=== PATIENT | female | born 1985 | race Caucasian/White ===

== ENCOUNTER 2017-06-09 06:26 | Inpatient (IN) ==
[2017-06-09] MEDS ORDERED: ALBUTEROL/IPRATROPIUM 2.5mg-0.5mg/3ml NEB IH ONE (06:35)
[2017-06-09] MEDS ORDERED: METHYLPREDNISOLONE SOD SUCC 125mg/2ml INJECTION IM ONE (06:35)
--- OUTSIDE RECORDS SUMMARY | 2017-06-09 06:41 | External Medical Summary ---
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 08247-073 650 MG Orally August 23, 1 tablet as 0-08 every 6 hrs 2014 needed for headache Ventolin HFA [facility] 73484-099 108 (90 Base) July 28, 1 to 2 puffs 2-20 MCG/ACT 2014 as needed Inhalation every for 6 hrs cough/wheezi ng/shortness of breath Pristiq [facility] 65007-216 50 MG Orally 1 tablet 1-01 Once a day Ativan [facility] 19194-703 0.5 MG Orally 1 tablet as 7-60 Once a day needed Results No Known Results Summary Purpose eClinicalWorks Submission
--- OUTSIDE RECORDS SUMMARY | 2017-06-09 06:41 | External Medical Summary ---
:1985 Author Organization [employer] Care Team Providers Name Role Phone Tim Wren Provider Role Unavailable Allergies, Adverse Reactions, Alerts Substance Reaction Event Type Sulfa rash Drug Allergy Ketorolac Tromethamine muscle spasm at injection site Drug Allergy Problems Problem Type Condition Code Onset Dates Condition Status Assessment Acute bronchitis 466.0 Active Assessment Tear of medial cartilage or meniscus 836.0 Active of knee, current Assessment Asthma 493.90 Active Assessment Migraine headaches 346.90 Active Problem Generalized osteoarthrosis, 715.09 Active involving multiple sites Problem Asthma 493.90 Active Problem Migraine headaches 346.90 Active Assessment Knee pain 719.46 Active Assessment Sprain and strain of cruciate 844.2 Active ligament of knee Problem Knee pain 719.46 Active Problem Unspecified anemia 285.9 Active Medications Medication Code System Code Instructions Start End Date Status Dosage Date Ativan [facility] 40245-29 0.5 MG Orally 1 tablet as 37-60 [place] [address]-71 650 MG Orally August 23, 1 tablet as 00-08 every 6 hrs 2014 needed for headache Ventolin HFA [facility] 13505-86 108 (90 Base) July 28, 1 to 2 puffs 82-20 MCG/ACT 2015 as needed Inhalation every for 6 hrs cough/wheezi ng/shortness of breath Pristiq [facility] 80208-85 50 MG Orally 1 tablet - Once a day Flovent HFA [facility] 04825-49 44 MCG/ACT August 23September 22, 1 puff 18-20 Inhalation Twice 2014 2014 a day Procedures Procedure Coding System Code Date OFFICE VISIT, EST-MOD. COMPLEXITY (25 MIN) CPT-4 51663 September 06, 2014 Vital Signs Date/Time: September 06, 2014 Height 59.5 in Weight 219.12 lbs Temperature 98.4 F Blood Pressure Diastolic 78 mm Hg Blood Pressure Systolic 122 mm Hg Cardiac Monitoring Heart Rate 86 /min BMI 43.51 Index Respiratory Rate 28 /min Results No Known Results Summary Purpose eClinicalWorks Submission
[2017-06-09] MEDS ORDERED: OXYMETAZOLINE 0.05% NASAL SPRAY 15ml EA NOSTRIL ONE (06:42)
[2017-06-09] MEDS ORDERED: DiphenhydrAMINE 50 MG/ML INJECTION IVP ONE (06:42)
[2017-06-09] MEDS ORDERED: GUAIFENESIN 400MG TABLET PO ONE (06:42)
--- NOTE | 2017-06-09 06:46 | Emergency Department Report ---
Asthma HPI - General Stated Complaint: difficulty breathing Time Seen by Provider: 06/09/17 06:35 Source: patient, RN notes reviewed, old records reviewed Mode of arrival: ambulatory Limitations: no limitations - History of Present Illness HPI Narrative: 31yo woman presents to the ER for evaluation of difficulty breathing. Pt has had continuous dyspnea for the last week. She has seen her PCM and is now on combivent, q6h nebs, and x2 atbx (doxy and levaquin). Pt has not received much relief and sx come back quickly after the atbx. Pt has URI sx, and coughs frequently. Pt has severe sinus pain, hilario with coughing. MD complaint: "asthma attack", shortness of breath Onset (ago): week(s) (4+) Severity: severe Context: recent URI Associated symptoms: productive cough Asthma History: childhood onset Treatments Prior to Arrival: inhaled bronchodilator, inhaled steroid, IV steroid , other (nebs) - Related Data Home Medications Medication Instructions Recorded Confirmed Pristiq (desvenlafaxine succinate 100 mg PO Q24H 03/29/17 06/09/17 ER) 100 mg tablet,extended release 24 hr Topamax (topiramate) 25 mg tablet 25 mg PO BID tab 03/29/17 06/09/17 Albuterol/Ipratropium [Duoneb] 1 vial INH Q6H PRN 06/09/17 06/09/17 Allergies Allergy/AdvReac Type Severity Reaction Status Date / Time Sulfa (Sulfonamide Allergy Intermediate RASH Verified 06/09/17 06:52 Antibiotics) ketorolac [From Toradol] Allergy Unknown Verified 06/09/17 06:53 hydrocodone [From Lortab] AdvReac Verified 06/09/17 06:52 Review of Systems All systems: reviewed and negative except as stated Constitutional: Reports: as per HPI, weakness. Denies: fever, chills, weight change, night sweats ENT: Reports: as per HPI, throat pain, congestion. Denies: ear pain, dental pain, hearing loss, epistaxis, dysphagia Respiratory: Reports: as per HPI, cough, dyspnea, wheezes. Denies: hemoptysis, stridor PFSH Patient Stated Medical History Migraine Yes Asthma Yes Bronchitis Yes Pneumonia Yes: 2015 Hx Kidney Stones Yes Osteoarthritis Yes Other Musculoskeletal Yes: RIGHT KNEE PROBLEM Anesthesia Reactions Yes: THROAT SPASMED WITH TUBE REMOVAL Depression Yes Abnormal Pap Yes Post Menopausal No Now No Clinic Medical History (Last Updated 03/29/17 @ 13:55 by Jethro Vidal MA) Depression (Acute Medical) Headache (Acute Medical) Surgical History: c- section x2. lithotripsy. uterine ablation. partial hysterectomy. tonsillectomy Family History: Family History (Last Updated 03/29/17 @ 13:58 by Jethro Vidal MA) Mother History of colon polyps Father Diabetes 1.5, managed as type 2 Diabetes 1.5, managed as type 1 HTN (hypertension) - Social History Smoking status: Former smoker Physical Exam - Limitations Limitations: no limitations - General General appearance: alert, in no apparent distress, obese - Normal Exams: Head:: Normocephalic without trauma Eyes:: Pupils are PERRLA w/ EOMI, No scleral icterus, irritation, or foreign bodies noted Lymphatic:: No lymphadenopathy Musculoskeletal:: No tenderness, or deformity noted, good range of motion Integumentary:: No rashes, hives, or bruising noted, hair and nails Neurological:: Patient is alert, and oriented, cranial nerves, motor/sensory/ cerebellar, exams w/o gross deficits Psychiatric:: Patient exhibits, appropriate attention - ENT ENT exam: Present: normal exam, mucous membranes moist, normal external ear exam. Absent: normal oropharynx (Erythema with PND) - Neck Neck exam: Present: normal inspection, full ROM, trachea midline. Absent: tenderness - Chest Chest inspection: Present: normal inspection, symmetric chest wall rise. Absent : tenderness, rash - Respiratory Respiratory exam: Present: wheezes (Throughout). Absent: normal lung sounds bilaterally, respiratory distress, prolonged expiratory phase - Cardiovascular Cardiovascular exam: Present: regular rate, normal rhythm, normal heart sounds, +S1, +S2. Absent: systolic murmur, diastolic murmur, +S3, +S4 Course - Consultations Consultation #1: Hospitalist: Will admit for further eval/treatment. Time: 09:40 Vital Signs Temperature 98.1 F 06/09/17 06:33 Pulse Rate 110 H 06/09/17 06:33 Respiratory Rate 24 06/09/17 06:33 Blood Pressure 193/86 H 06/09/17 06:33 Pulse Oximetry 95 06/09/17 06:33 Temperature 98.1 F 06/09/17 06:33 Pulse Rate 110 H 06/09/17 06:33 Respiratory Rate 16 06/09/17 09:16 Blood Pressure 193/86 H 06/09/17 06:33 Pulse Oximetry 94 06/09/17 09:16 Dyspnea - MDM Narrative Medical decision making narrative: Pt is still hypoxic (86-96% on RA; sitting at 93% at baseline), tachycardic, and tachypneic following solu-medrol, duo-neb x3, and IV mag. Flu A/B neg; has h /o asthma. Will contact hospitalist for discussion of admission. - Differential Diagnosis Differential diagnosis: Likely: Acute exacerbation, Status asthmaticus, Acute asthmatic bronchitis, Pneumonia (Sinusitis), COPD exacerbation, Pneumothorax - Medical Records Attestation: I reviewed the patient's medical records. - Lab Data Attestation: I reviewed the patient's lab results. Result diagrams: 06/09/17 07:47 06/09/17 07:47 Lab Results 06/09/17 06/09/17 06/09/17 Range/Units 07:11 07:47 07:47 WBC 8.1 (4.5-11.0) T/MM3 RBC 4.80 (4.00-5.20) M/MM3 Hgb 13.5 (12-16) GM/DL Hct 41.6 (36-46) % MCV 86.7 (80-100) UM3 MCH 28.1 (26-34) UUG MCHC 32.5 (31-37) GM/DL RDW Std Deviation 45.4 (36.9-50.2) FL Plt Count 184 (130-400) T/MM3 MPV 11.6 (9.4-12.4) UM3 Immature Gran % (Auto) 0.7 H (0.0-0.5) % Neut % (Auto) 62.3 (33-66) % Lymph % (Auto) 24.8 (23-45) % [place] % (Auto) 4.1 (0-9.0) % Eos % (Auto) 7.9 H (0-4) % Baso % (Auto) 0.2 (0-2) % Neut # (Auto) 5.0 (1.8-7.7) T/MM3 Lymph # (Auto) 2.0 (1-4.8) T/MM3 [place] # (Auto) 0.3 (0-0.8) T/MM3 Eos # (Auto) 0.6 H (0-0.5) T/MM3 Baso # (Auto) 0.0 (0-0.2) T/MM3 Abs Immat Gran (auto) 0.06 H (0.00-0.03) T/MM3 D-Dimer (0-230) NG/ML ABG pH (7.350-7.450) ABG pCO2 (34-45) MMHG ABG pO2 (80-100) MMHG ABG HCO3 (22-26) MEQ/L ABG Total CO2 (23-27) MEQ/L ABG O2 Saturation (95.0-98.0) % ABG Base Excess (-2.0-2.0) MMOL/L O2 Delivery Method Turbidity < 20 (0-20) Sodium 144 (134-144) MEQ/L Potassium 3.8 (3.6-5) MEQ/L Chloride 106 (98-107) MEQ/L Carbon Dioxide 24 (22-30) MEQ/L Anion Gap 14 (5-15) MEQ/L BUN 16.0 (7-17) MG/DL Creatinine 0.7 (0.7-1.2) MG/DL GFR Calculation 98 BUN/Creatinine Ratio 23 (6-26) RATIO Glucose 150 H (65-110) MG/DL Calculated Osmolality 281 H (261-280) MOSM/KG Calcium 9.4 (8.4-10.2) MG/DL Icterus Index < 2 (0-7) Specimen Hemolysis 31 H (0-25) Adenovirus (PCR) Negative (Negative) B.parapertussis DNA PCR Negative (Negative) C. pneumoniae DNA (PCR) Negative (Negative) Coronavirus OC43 (PCR) Negative (Negative) Coronavirus HKU1 (PCR) Negative (Negative) Coronavirus 229E (PCR) Negative (Negative) Coronavirus NL63 (PCR) Negative (Negative) Human Metapneumovir PCR Negative (Negative) Influenza Type A (PCR) Negative (Negative) Influenza Type B (PCR) Negative (Negative) M. pneumoniae (PCR) Negative (Negative) Parainfluenza 1 (PCR) Negative (Negative) Parainfluenza 2 (PCR) Negative (Negative) Parainfluenza 3 (PCR) Negative (Negative) Parainfluenza 4 (PCR) Negative (Negative) RSV (PCR) Negative (Negative) Entero/Rhino (PCR) Negative (Negative) 06/09/17 06/09/17 Range/Units 07:47 09:05 WBC (4.5-11.0) T/MM3 RBC (4.00-5.20) M/MM3 Hgb (12-16) GM/DL Hct (36-46) % MCV (80-100) UM3 MCH (26-34) UUG MCHC (31-37) GM/DL RDW Std Deviation (36.9-50.2) FL Plt Count (130-400) T/MM3 MPV (9.4-12.4) UM3 Immature Gran % (Auto) (0.0-0.5) % Neut % (Auto) (33-66) % Lymph % (Auto) (23-45) % [place] % (Auto) (0-9.0) % Eos % (Auto) (0-4) % Baso % (Auto) (0-2) % Neut # (Auto) (1.8-7.7) T/MM3 Lymph # (Auto) (1-4.8) T/MM3 [place] # (Auto) (0-0.8) T/MM3 Eos # (Auto) (0-0.5) T/MM3 Baso # (Auto) (0-0.2) T/MM3 Abs Immat Gran (auto) (0.00-0.03) T/MM3 D-Dimer < 150 (0-230) NG/ML ABG pH 7.390 (7.350-7.450) ABG pCO2 37 (34-45) MMHG ABG pO2 84 (80-100) MMHG ABG HCO3 22 (22-26) MEQ/L ABG Total CO2 23.5 (23-27) MEQ/L ABG O2 Saturation 96.0 (95.0-98.0) % ABG Base Excess -2.2 L (-2.0-2.0) MMOL/L O2 Delivery Method Room air Turbidity (0-20) Sodium (134-144) MEQ/L Potassium (3.6-5) MEQ/L Chloride (98-107) MEQ/L Carbon Dioxide (22-30) MEQ/L Anion Gap (5-15) MEQ/L BUN (7-17) MG/DL Creatinine (0.7-1.2) MG/DL GFR Calculation BUN/Creatinine Ratio (6-26) RATIO Glucose (65-110) MG/DL Calculated Osmolality (261-280) MOSM/KG Calcium (8.4-10.2) MG/DL Icterus Index (0-7) Specimen Hemolysis (0-25) Adenovirus (PCR) (Negative) B.parapertussis DNA PCR (Negative) C. pneumoniae DNA (PCR) (Negative) Coronavirus OC43 (PCR) (Negative) Coronavirus HKU1 (PCR) (Negative) Coronavirus 229E (PCR) (Negative) Coronavirus NL63 (PCR) (Negative) Human Metapneumovir PCR (Negative) Influenza Type A (PCR) (Negative) Influenza Type B (PCR) (Negative) M. pneumoniae (PCR) (Negative) Parainfluenza 1 (PCR) (Negative) Parainfluenza 2 (PCR) (Negative) Parainfluenza 3 (PCR) (Negative) Parainfluenza 4 (PCR) (Negative) RSV (PCR) (Negative) Entero/Rhino (PCR) (Negative) - Radiology Data Attestation: I reviewed the patient's radiology results. CXR: Stable chest. Image inverted. No acute CT pathology. Disposition Clinical Impression: Hypoxia Asthma exacerbation Qualifiers: Asthma severity: unspecified severity Asthma persistence: unspecified Qualified Code(s): J45.901 - Unspecified asthma with (acute) exacerbation Disposition: 02 To [facility] Condition: Improved Time of Disposition: 09:44 - Seen By: physician
[2017-06-09] MEDS ORDERED: DiphenhydrAMINE 50 MG/ML INJECTION IM ONE (06:55)
[2017-06-09] MEDS ORDERED: SALINE FLUSH 10ml SYRINGE IVF PRN (07:32)
[2017-06-09] MEDS ORDERED: ALBUTEROL/IPRATROPIUM 2.5mg-0.5mg/3ml NEB AEROSOL ONE ×2 (08:04→08:51)
[2017-06-09] MEDS: MAGNESIUM SULFATE 1gm PREMIX 1 GM/100 ML BAG IV SCH ×2 (08:22→08:35)
--- NOTE | 2017-06-09 08:41 | XRay Report ---
INDICATION: Dyspnea PROCEDURE: CHEST 2-VIEWS UPRIGHT (PA & LAT) Encounter: Initial COMPARISON: May 28, 2017 FINDINGS: The lungs are clear without evidence of focal abnormal airspace opacity. There is no pleural effusion or pneumothorax. The heart size, mediastinal contours and pulmonary vascularity are within normal limits. There is no significant skeletal abnormality. IMPRESSION: No acute cardiopulmonary disease. .
[2017-06-09 11:13] VITALS: BMI 48.0
[2017-06-09] MEDS ORDERED: SENNA + DOCUSATE TABLET PO PRN (11:47)
[2017-06-09] MEDS ORDERED: ACETAMINOPHEN 325 MG TABLET PO PRN (11:47)
[2017-06-09] MEDS ORDERED: ONDANSETRON 4 MG/2 ML INJECTION IVP PRN (11:47)
[2017-06-09] MEDS ORDERED: ALBUTEROL/IPRATROPIUM 2.5mg-0.5mg/3ml NEB AEROSOL PRN (12:04)
[2017-06-09] MEDS ORDERED: BENZONATATE 100 MG CAPSULE PO PRN (12:06)
[2017-06-09] MEDS ORDERED: MENTHOL COUGH DROPS (RICOLA) MM PRN (12:06)
[2017-06-09] MEDS ORDERED: HYDROCODONE/CHLORPHENIRAMINE ER ORAL LIQ 5ml PO PRN (12:07)
--- NOTE | 2017-06-09 12:19 | History & Physical Report ---
History of Present Illness Date: 06/09/17 Chief complaint: asthma exacerbation, dyspnea HPI: Hayley Ordaz is a 31-year-old patient of Dr. Reyes Feldman who presented to [facility] today, 06/09/17, for evaluation of worsening dyspnea. She reports a history of asthma and states that beginning in April 2017 she started to have increased cough, occasionally productive, sinus tenderness and progressive dyspnea. She was seen by her PCP and treated for "walking pneumonia" with Levaquin and doxycycline which she states she completed more than a week ago. She reports that she initially felt better following the antibiotic treatment until yesterday, 06/08/17, when she started to have increased cough with increased difficulty breathing. She denies any known fevers throughout her illness. No chest pain, abdominal pain, nausea, vomiting or dysuria. She reports that her children were previously sick with respiratory symptoms but have since resolved. She admits to using home DuoNeb treatments as well as Combivent and pro-air albuterol inhaler as needed. Throughout the night, she progressively became more short of breath, eventually seeking evaluation in the ED this morning. Upon arrival to the ED, she was found to be tachypneic and tachycardic. She was given 3 DuoNeb treatments, Solu-Medrol 125mg IV, mucinex x 1 dose and Benadryl 50mg IV without improvement. She was then given Magnesium sulfate 3g IV with some improvement. CXR revealed no acute cardiopulmonary abnormalities. Labs were unremarkable including d-dimer which was <150. Despite treatments, she remained tachycardic with tachypnea. Dr. Arguello was consulted and she was admitted into observation status for further evaluation, close respiratory monitoring and symptomatic treatment. Her length of stay is not expected to exceed more than 2 over nights. MD: Ms. Ordaz was interviewed by me. Currently she is breathing normally without labored breathing. She is on room air. She denies any chest pain or palpitations. She does tell me that she did have fevers when this all started in April but has not run any sense. She is starting to cough up thick brown sputum chunks. She denies nausea, vomiting, diarrhea or constipation. She denies any abdominal pain. She denies any lower extremity edema. Review of Systems All systems PM: 10-point ROS was reviewed, no additional remarkable complaints except Review of systems: 12 point review of systems negative except as noted in the HPI - Constitutional Constitutional: Present: headache(s) (sinus pressure). Absent: chills, fatigue , fever(s), lethargy, night sweats, weakness - EENMT Eyes: Absent: diplopia, loss of vision, photophobia Ears: Absent: ear pain Balance: Absent: falling to one side Nose: Present: allergies. Absent: nosebleeds Mouth/Throat: Present: dry mouth. Absent: sore throat, sores, ulcers, changes in swallowing, painful swallowing - Cardiovascular Cardiovascular: Present: dyspnea on exertion. Absent: chest pain, palpitations , syncope, orthopnea, edema Vascular: Absent: pallor of an extermity, pedal edema, unilateral swelling - Respiratory Respiratory: Present: cough, dyspnea, dyspnea on exertion, chest congestion. Absent: hemoptysis, wheezing, pain on inspiration - Gastrointestinal Gastrointestinal: Absent: abdominal pain, change in bowel habits, constipation, diarrhea, hematochezia, melena, nausea, vomiting - Genitourinary Genitourinary: Absent: dysuria, flank pain, hematuria Menstruation: post hysterectomy (partial) - Musculoskeletal Musculoskeletal: Absent: abnormal gait, back pain, deformity, muscle weakness - Integumentary/Breasts Integumentary: Absent: erythema, lesions, rash - Neurological Neurological: Absent: abnormal gait, abnormal speech, confusion, convulsions, dizziness, frequent falls, weakness - Psychiatric Psychiatric: Present: anxiety, depression. Absent: behavioral changes - Endocrine Endocrine: Present: polydipsia. Absent: heat intolerance, palpitations, polyphagia, polyuria - Hematologic/Lymphatic Hematologic/Lymphatic: Absent: easy bruising - Allergic/Immunologic Allergic/Immunologic: Present: seasonal rhinorrhea Past Medical History Patient Stated Medical History Migraines. Asthma. History of bronchitis. History of pneumonia - 2014. Osteoarthritis. Depression. Anxiety. Surgical History: C- section x2 - 2006, 2011. Lithotripsy - 2010. Uterine ablation - 2013. Partial hysterectomy - 2017. Tonsillectomy - 2016. Family History Updates: Mother - alive, age 50, GERD, RA, fibromyalgia, colon polyps. Father - alive, age 50, hypertension, prediabetes. Maternal grandmother - , pancreatic cancer. Maternal Aunt - alive, breast cancer. - Social History Smoking status: Former smoker (quit 2011) Substance use type: does not use Alcohol intake frequency: does not drink Housing: house Household members: spouse, family (mother), children Current occupational status: employed Does patient use chewing tobacco?: No Current residence: Apartment/Private Home Social history: PCP - Dr. Reyes Feldman ([facility]). Medications Home Medications Medication Instructions Recorded Confirmed Type Pristiq (desvenlafaxine succinate 100 mg PO Q24H 03/29/17 06/09/17 History ER) 100 mg tablet,extended release 24 hr Topamax (topiramate) 25 mg tablet 25 mg PO BID tab 03/29/17 06/09/17 History Albuterol/Ipratropium [Duoneb] 1 vial INH Q6H PRN 06/09/17 06/09/17 History Allergies Allergy/AdvReac Type Severity Reaction Status Date / Time Sulfa (Sulfonamide Allergy Intermediate RASH Verified 06/09/17 06:52 Antibiotics) ketorolac [From Toradol] Allergy Unknown Verified 06/09/17 06:53 hydrocodone [From Lortab] AdvReac Verified 06/09/17 06:52 Exam Vital Signs: Temperature 98.1 F 06/09/17 06:33 Pulse Rate 126 H 06/09/17 10:31 Respiratory Rate 24 06/09/17 10:31 Blood Pressure 124/61 06/09/17 10:31 Pulse Oximetry 94 06/09/17 10:31 Height/Weight/BMI: Height 4 ft 9 in Weight 222 lb 3.615 oz Body Mass Index 48.0 Comments: Patient seen while resting in bed, breathing easily on room air. MD: currently she is alert and oriented and in no acute distress. Her skin is warm and dry. Her neck is supple without DVD. There are no carotid bruits. HEENT exam is within normal limits. Her lungs are slightly diminished and she does have a soft expiratory wheeze. I do not hear any rhonchi or rales. Her heart is regular but still tachycardic. There are no murmurs, rubs her gallops. Her abdomen is obese, soft, nontender, nondistended with positive bowel sounds. She has no lower extremity edema. She moves all extremities. Neurological exam shows no focal deficits. - Constitutional Present: no acute distress, well nourished, well developed, morbidly obese, cooperative - Routine HEENT Exam Head: Present: normocephalic, atraumatic Eye: Present: PERRL. Absent: conjunctival icterus ENT: Present: mucous membranes dry Comments: lips cracked and membranes tacky. - Routine Neck Exam Present: supple, full ROM, trachea midline - Routine Chest/Breast/Axilla Exam Chest wall: Absent: pacemaker - Routine Respiratory Exam Present: CTA bilaterally. Absent: rales, rhonchi, stridor, wheezes, crackles Comments: patient breathing easily on room air without distress or increased respiratory effort noted; no conversational dyspnea; dry reactive cough noted with deep breathing; no wheezing or crackles on exam. - Routine Cardiovascular Exam Present: RRR, S1, S2 - Routine Abdominal Exam Present: soft, normoactive bowel sounds, non distended, non tender. Absent: rebound, guarding Comments: obese. - Routine Extremities Exam Present: no edema, non tender, full ROM, pulses intact - Routine Back/Spine/Pelvis Exam Back/Spine: Present: full ROM. Absent: vertebral tenderness - Routine Skin Exam Present: intact, dry, warm. Absent: jaundice Comments: afebrile. - Routine Neurological Exam Present: alert, oriented X3, CN II-XII intact, moving all extremities, hearing grossly intact, normal speech. Absent: facial asymmetry - Routine Psychiatric Exam Present: normal affect, cooperative Results - Labs CBC & Chem 7: 06/09/17 07:47 06/09/17 07:47 - Imaging and Cardiology Chest x-ray Status: image reviewed by me Additional comments: Date of Exam: 06/09/17 Type of Exam(s): XR chest 2V Reason for Exam(s): Dyspnea FINDINGS: The lungs are clear without evidence of focal abnormal airspace opacity. There is no pleural effusion or pneumothorax. The heart size, mediastinal contours and pulmonary vascularity are within normal limits. There is no significant skeletal abnormality. IMPRESSION: No acute cardiopulmonary disease. Assessment and Plan (1) Asthma exacerbation Current visit: Yes Status: Acute Assessment and Plan: Assessment Acute bronchitis with tachypnea and tachycardia. Migraines, chronic. Asthma, chronic. Osteoarthritis. Depression. Anxiety. Plan - 06/09/17 (Admission) Admit patient to observation status under care of Dr. Arguello. Patient reported to to be hypoxic during ED evaluation. Will monitor closely on telemetry with continuous oximetry. Oxygen as needed to maintain SAO2 >90%, weaning as able. Currently patient breathing easily on room air. Patient appears clinically dehydrated. Will initiate NS 125cc/hr for hydration and monitor closely. Continue DuoNeb treatment QID and PRN. Continue home Combivent. Patient given Solu-Medrol 125mg IV in ED. Will start prednisone 40mg po daily on 06/10 for pulmonary inflammation. Mucinex for mucolytic effect. Ricola and Tussinex for cough suppression. Will try and obtain sputum culture. CXR on admission revealed no acute cardiopulmonary abnormality. Patient recently completed course of levaquin as well as doxycycline for bronchitis/"walking pneumonia". Will hold off on additional antibiotics at this time as there is no indication of acute infection. Tylenol as needed for pain/fever. Continue home medications for migraines, anxiety and depression. Upon discharge, patient's care will be returned to her PCP, Dr. Feldman. MD: The patient was interviewed and examined by me with my documentation noted above. I have reviewed her imaging and labs. I agree with the PA assessment and plan as stated above. DVT Prophylaxis: SCD's Resuscitation Status: Full Code - Time spent with patient Time with patient PN: 35 minutes - Physician Narrative Physician: Leah Arguello MD Narrative: Date: 06/09/17 Time: 1208 Hospital Course Summary Disclaimer: The visit summary below is not to be considered part of the above Progress Note. Hospital Course: Plan - 06/09/17 (Admission) Admit patient to observation status under care of Dr. Arguello. Patient reported to to be hypoxic during ED evaluation. Will monitor closely on telemetry with continuous oximetry. Oxygen as needed to maintain SAO2 >90%, weaning as able. Currently patient breathing easily on room air. Patient appears clinically dehydrated. Will initiate NS 125cc/hr for hydration and monitor closely. Continue DuoNeb treatment QID and PRN. Continue home Combivent. Patient given Solu-Medrol 125mg IV in ED. Will start prednisone 40mg po daily on 06/10 for pulmonary inflammation. Mucinex for mucolytic effect. Ricola and Tussinex for cough suppression. Will try and obtain sputum culture. CXR on admission revealed no acute cardiopulmonary abnormality. Patient recently completed course of levaquin as well as doxycycline for bronchitis/"walking pneumonia". Will hold off on additional antibiotics at this time as there is no indication of acute infection. Tylenol as needed for pain/fever. Continue home medications for migraines, anxiety and depression. Upon discharge, patient's care will be returned to her PCP, Dr. Feldman.
[2017-06-09] MEDS: NS 1,000 ML IV SCH ×2 (12:45→21:13)
[2017-06-09] MEDS: ALBUTEROL/IPRATROPIUM 2.5mg-0.5mg/3ml NEB AEROSOL SCH ×2 (13:59→17:09)
[2017-06-09] MEDS: Desvenlafaxine SR 50 MG TABLET PO SCH (14:23)
[2017-06-09] MEDS ORDERED: Ipatropium/Albuterol 20/100mcg INHALER (4gm) ORAL INH SCH (15:00)
[2017-06-09] MEDS ORDERED: PNEUMOCOCCAL 13 VACCINE 0.5ml INJECTION IM ONE (17:15)
[2017-06-09] MEDS: GUAIFENESIN LA 600 MG TABLET PO SCH (20:13)
[2017-06-09] MEDS: TOPIRAMATE 25 MG TABLET PO SCH (20:13)
[2017-06-10] MEDS: NS 1,000 ML IV SCH (03:54)
[2017-06-10] MEDS ORDERED: PNEUMOCOCCAL VAC ADMIN CHARGE INJ ONE (07:08)
[2017-06-10] MEDS: ALBUTEROL/IPRATROPIUM 2.5mg-0.5mg/3ml NEB AEROSOL SCH ×4 (07:31→20:26)
[2017-06-10] MEDS: PredniSONE 20 MG TABLET PO SCH (10:02)
[2017-06-10] MEDS: GUAIFENESIN LA 600 MG TABLET PO SCH ×2 (10:02→20:59)
[2017-06-10] MEDS: TOPIRAMATE 25 MG TABLET PO SCH ×2 (10:02→20:59)
[2017-06-10] MEDS: Desvenlafaxine SR 50 MG TABLET PO SCH (12:16)
--- NOTE | 2017-06-10 16:43 | Progress Note ---
- Date 06/10/17 Subjective: Hayley reports persistent exertional dyspnea and cough triggered by minimal activity although she feels better overall and has not needed oxygen at rest today. Nursing ambulated patient earlier at which time oxygen saturation remained stable on room air but patient became tachycardic with heart rate up to 120 and respirations were labored. She coughed uncontrollably with ambulating. Patient reports she's had no fever and denies lightheadedness. She' s had no nausea or vomiting and is voiding without difficulty. She describes having recurrent episodes of cough and dyspnea since early April and has been treated with doxycycline and Levaquin previously and been on at least 2 prior courses of prednisone. She completed the most recent course of steroids about 2 weeks ago. Patient denies chronic sinus drainage or postnasal drip. Objective Vital signs: Temperature 96.8 F 06/10/17 08:00 Pulse Rate 85 06/10/17 15:33 Respiratory Rate 18 06/10/17 15:33 Blood Pressure 136/74 06/10/17 15:33 Pulse Oximetry 96 - RA 06/10/17 15:33 Peak flow-200 per patient report; based on age/height predicted flow should be approximate 460 NAD, alert Conjunctiva clear, sclera anicteric, oropharynx clear, no sinus tenderness Respirations nonlabored, inspiration triggers repetitive tight coughing, no wheezing appreciated, decreased breath sounds at the bases but otherwise clear Regular rhythm, S1-S2 Abdomen is soft, nontender, diminished bowel sounds Extremities without edema MAEW Height/Weight/BMI: Height 1.45 m Weight 103.1 kg Body Mass Index 48.0 Results - Labs CBC & Chem 7: 06/10/17 04:24 06/10/17 04:24 Labs: Respiratory viral panel negative Microbiology Results: Microbiology 06/10/17 10:35 Sputum, Expectorated Gram Stain - moderate neutrophils, few epithelial cells, moderate gram-positive cocci in pairs; few gram-positive rods , few gram-negative coccibacilli 06/10/17 10:35 Sputum, Expectorated Sputum Culture - Preliminary Culture Initiated - Results Pending - Imaging and Cardiology Chest x-ray Status: image reviewed by me (REYES) Assessment and Plan (1) Asthma exacerbation Current visit: Yes Status: Acute Assessment and Plan: Assessment- Acute bronchitis with tachypnea, tachycardia, hypoxia on admission Asthma exacerbation Migraines, chronic Asthma, chronic Osteoarthritis Depression/anxiety Morbid obesity-BMI 49 Plan- Symptoms partially improved but continued cough/dyspnea with minimal activity. Chest x-ray unremarkable, suspect asthma exacerbation. Given recurrent symptoms with progressive worsening over the past [address] Valera to evaluate. Peak flow significantly impaired-do not believe patient is stable for discharge at present; continue prednisone, inhaled breathing treatments with addition of Pulmicort, and monitor peak flows twice daily. White count up slightly today consistent with steroid use. Blood sugars modestly elevated on presentation and again today. A1c in a.m. Discussed with Dr. Valera. - Physician Narrative Narrative: Date: 06/10/17 Time: 1638 Hospital Course Summary Disclaimer: The visit summary below is not to be considered part of the above Progress Note. Hospital Course: 06/09/17 (Admission) Admit patient to observation status under care of Dr. Arguello. Patient reported to to be hypoxic during ED evaluation. Will monitor closely on telemetry with continuous oximetry. Oxygen as needed to maintain SAO2 >90%, weaning as able. Currently patient breathing easily on room air. Patient appears clinically dehydrated. Will initiate NS 125cc/hr for hydration and monitor closely. Continue DuoNeb treatment QID and PRN. Continue home Combivent. Patient given Solu-Medrol 125mg IV in ED. Will start prednisone 40mg po daily on 06/10 for pulmonary inflammation. Mucinex for mucolytic effect. Ricola and Tussinex for cough suppression. Will try and obtain sputum culture. CXR on admission revealed no acute cardiopulmonary abnormality. Patient recently completed course of levaquin as well as doxycycline for bronchitis/"walking pneumonia". Will hold off on additional antibiotics at this time as there is no indication of acute infection. Tylenol as needed for pain/fever. Continue home medications for migraines, anxiety and depression. Upon discharge, patient's care will be returned to her PCP, Dr. Feldman. 06/10/17 Symptoms partially improved but continued cough/dyspnea with minimal activity. Chest x-ray unremarkable, suspect asthma exacerbation. Given recurrent symptoms with progressive worsening over the past [address] Valera to evaluate. Peak flow significantly impaired-do not believe patient is stable for discharge at present; continue prednisone, inhaled breathing treatments with addition of Pulmicort, and monitor peak flows twice daily. White count up slightly today consistent with steroid use. Blood sugars modestly elevated on presentation and again today. A1c in a.m.
[2017-06-10] MEDS: BUDESONIDE INH.SOLN 0.5mg/2ml NEB AEROSOL SCH (20:27)
[2017-06-11] MEDS: BUDESONIDE INH.SOLN 0.5mg/2ml NEB AEROSOL SCH (08:43)
[2017-06-11] MEDS: ALBUTEROL/IPRATROPIUM 2.5mg-0.5mg/3ml NEB AEROSOL SCH ×4 (08:44→18:10)
[2017-06-11] MEDS: PredniSONE 20 MG TABLET PO SCH (08:58)
[2017-06-11] MEDS: GUAIFENESIN LA 600 MG TABLET PO SCH (08:59)
[2017-06-11] MEDS: TOPIRAMATE 25 MG TABLET PO SCH (08:59)
[2017-06-11] MEDS: Desvenlafaxine SR 50 MG TABLET PO SCH (11:54)
--- NOTE | 2017-06-11 13:32 | Pulmonology Consult Note ---
History of Present Illness Consult date: 06/11/17 Requesting physician: Opal Reed Reason for consult: asthma History of present illness: HPI: Hayley Ordaz is a 31-year-old woman with history of asthma-like symptoms for several years. For a few years she was diagnosed as having chronic bronchitis. She was a smoker in the past but has stopped. Her doctor diagnosed her with asthma last year and she has been taking Symbicort since then. She states that she was slightly better on that but last month developed a URTI. She states she never improved and has been having worsening cough and shortness of breath. She presented to the ED for shortness of breath and severe coughing. Per the admission history: This is a patient of Dr. Reyes Feldman who presented to [facility] ED today, 06/09/17, for evaluation of worsening dyspnea. She reports a history of asthma and states that beginning in April 2017 she started to have increased cough, occasionally productive, sinus tenderness and progressive dyspnea. She was seen by her PCP and treated for "walking pneumonia" with Levaquin and doxycycline which she states she completed more than a week ago. She reports that she initially felt better following the antibiotic treatment until yesterday, 06/08/17, when she started to have increased cough with increased difficulty breathing. She denies any known fevers throughout her illness. No chest pain, abdominal pain, nausea, vomiting or dysuria. She reports that her children were previously sick with respiratory symptoms but have since resolved. She admits to using home DuoNeb treatments as well as Combivent and pro-air albuterol inhaler as needed. Throughout the night, she progressively became more short of breath, eventually seeking evaluation in the ED this morning. Upon arrival to the ED, she was found to be tachypneic and tachycardic. She was given 3 DuoNeb treatments, Solu-Medrol 125mg IV, mucinex x 1 dose and Benadryl 50mg IV without improvement. She was then given Magnesium sulfate 3g IV with some improvement. CXR revealed no acute cardiopulmonary abnormalities. Labs were unremarkable including d-dimer which was <150. Despite treatments, she remained tachycardic with tachypnea. Dr. Arguello was consulted and she was admitted into observation status for further evaluation, close respiratory monitoring and symptomatic treatment. Her length of stay is not expected to exceed more than 2 over nights. : Ms. Ordaz was interviewed by me. Currently she is breathing normally without labored breathing. She is on room air. She denies any chest pain or palpitations. She does tell me that she did have fevers when this all started in April but has not run any sense. She is starting to cough up thick brown sputum chunks. She denies nausea, vomiting, diarrhea or constipation. She denies any abdominal pain. She denies any lower extremity edema. Review of Systems All systems PM: 10-point ROS was reviewed, no additional remarkable complaints except Review of systems: 12 point review of systems negative except as noted in the HPI - Constitutional Constitutional: Present: headache(s) (sinus pressure). Absent: chills, fatigue , fever(s), lethargy, night sweats, weakness - EENMT Eyes: Absent: diplopia, loss of vision, photophobia Ears: Absent: ear pain Balance: Absent: falling to one side Nose: Present: allergies. Absent: nosebleeds Mouth/Throat: Present: dry mouth. Absent: sore throat, sores, ulcers, changes in swallowing, painful swallowing - Cardiovascular Cardiovascular: Present: dyspnea on exertion. Absent: chest pain, palpitations , syncope, orthopnea, edema Vascular: Absent: pallor of an extermity, pedal edema, unilateral swelling - Respiratory Respiratory: Present: cough, dyspnea, dyspnea on exertion, chest congestion. Absent: hemoptysis, wheezing, pain on inspiration - Gastrointestinal Gastrointestinal: Absent: abdominal pain, change in bowel habits, constipation, diarrhea, hematochezia, melena, nausea, vomiting - Genitourinary Genitourinary: Absent: dysuria, flank pain, hematuria Menstruation: post hysterectomy (partial) - Musculoskeletal Musculoskeletal: Absent: abnormal gait, back pain, deformity, muscle weakness - Integumentary/Breasts Integumentary: Absent: erythema, lesions, rash - Neurological Neurological: Absent: abnormal gait, abnormal speech, confusion, convulsions, dizziness, frequent falls, weakness - Psychiatric Psychiatric: Present: anxiety, depression. Absent: behavioral changes - Endocrine Endocrine: Present: polydipsia. Absent: heat intolerance, palpitations, polyphagia, polyuria - Hematologic/Lymphatic Hematologic/Lymphatic: Absent: easy bruising - Allergic/Immunologic Allergic/Immunologic: Present: seasonal rhinorrhea Past Medical History Patient Stated Medical History Migraines. Asthma. History of bronchitis. History of pneumonia - 2014. Osteoarthritis. Depression. Anxiety. Surgical History: C- section x2 - 2006, 2012. Lithotripsy - 2010. Uterine ablation - 2013. Partial hysterectomy - 2017. Tonsillectomy - 2016. Family History Updates: Mother - alive, age 50, GERD, RA, fibromyalgia, colon polyps. Father - alive, age 50, hypertension, prediabetes. Maternal grandmother - , pancreatic cancer. Maternal Aunt - alive, breast cancer. - Social History Smoking status: Former smoker (quit 2011) Substance use type: does not use Alcohol intake frequency: does not drink Housing: house Household members: spouse, family (mother), children Current occupational status: employed Does patient use chewing tobacco?: No Current residence: Apartment/Private Home Social history: Review of Systems All systems: reviewed and no additional remarkable complaints except as stated [facility] Medical History (Last Updated 03/29/17 @ 13:55 by Jethro Vidal MA) Depression (Acute Medical) Headache (Acute Medical) Surgical History: C- section x2 - 2006, 2011. Lithotripsy - 2010. Uterine ablation - 2013. Partial hysterectomy - 2017. Tonsillectomy - 2016. Family History: Family History (Last Updated 03/29/17 @ 13:58 by Jethro Vidal MA) Mother History of colon polyps Father Diabetes 1.5, managed as type 2 Diabetes 1.5, managed as type 1 HTN (hypertension) - Social History Smoking status: Former smoker (quit 2011) Does patient use chewing tobacco?: No Current residence: Apartment/Private Home Medications Home Medications Medication Instructions Recorded Confirmed Type Pristiq (desvenlafaxine succinate 100 mg PO Q24H 03/29/17 06/09/17 History ER) 100 mg tablet,extended release 24 hr Topamax (topiramate) 25 mg tablet 25 mg PO BID tab 03/29/17 06/09/17 History Albuterol/Ipratropium [Duoneb] 1 vial INH Q6H PRN 06/09/17 06/09/17 History Allergies Allergy/AdvReac Type Severity Reaction Status Date / Time Sulfa (Sulfonamide Allergy Intermediate RASH Verified 06/09/17 06:52 Antibiotics) ketorolac [From Toradol] Allergy Unknown Verified 06/09/17 06:53 hydrocodone [From Lortab] AdvReac Verified 06/09/17 06:52 Exam Vital signs: Temperature 96.4 F L 06/11/17 08:00 Pulse Rate 90 06/11/17 08:00 Respiratory Rate 12 06/11/17 08:45 Blood Pressure 118/67 06/11/17 08:00 Pulse Oximetry 99 06/11/17 08:45 - Constitutional no acute distress, obese - Routine HEENT Exam Head: Present: normocephalic, atraumatic ENT: Present: mucous membranes moist - Routine Neck Exam Present: supple, full ROM - Routine Respiratory Exam Present: decreased breath sounds, prolonged expiratory phase. Absent: wheezes - Routine Cardiovascular Exam Present: RRR - Routine Abdominal Exam Present: soft. Absent: guarding - Routine Extremities Exam Absent: cyanosis, clubbing - Routine Skin Exam Absent: rash - Routine Neurological Exam Present: alert, oriented X3 Results - Laboratory Findings CBC and BMP: 06/11/17 04:32 06/11/17 04:32 ABG ABG pH 7.390 (7.350-7.450) 06/09/17 09:05 ABG pCO2 37 MMHG (34-45) 06/09/17 09:05 ABG pO2 84 MMHG (80-100) 06/09/17 09:05 ABG O2 Saturation 96.0 % (95.0-98.0) 06/09/17 09:05 PT/INR, D-dimer D-Dimer < 150 NG/ML (0-230) 06/09/17 07:47 Abnormal lab findings: Abnormal Labs 06/11/17 06/11/17 04:32 04:32 WBC 12.0 H Immature Gran % (Auto) 1.5 H Neut % (Auto) 67.0 H Lymph % (Auto) 22.8 L Neut # (Auto) 8.0 H Abs Immat Gran (auto) 0.18 H Glucose 135 H Assessment and Plan (1) Acute sinusitis Status: Acute Assessment and plan: She has experienced significant cough and sputum production , frontal headaches and nasal congestion. She was somewhat improved on antibiotics but worsened again once these were stopped. I recommend CT sinuses and possibly a longer course of antibiotic therapy. Current Visit: Yes (2) Status asthmaticus Status: Acute Assessment and plan: Seems to be improved with current treatment plan. Recommend prednisone, 40 mg daily with tapering course. We will order a PFT and will recommend starting ICS /LABA upon discharge. Recommend Breo 200 once daily and albuterol neb qid as needed. I will plan to follow as an outpatient. Current Visit: Yes - Time Spent With Patient Total time spent is greater than 50% in coordination of care (as documented) at patient's floor/unit and/or counseling patient: 25 - 35 minutes
--- NOTE | 2017-06-11 15:18 | CT Scan Report ---
Indication: asthma and chronic cough PROCEDURE: CT sinus wo con: Encounter: Initial Comparison: None Technique: Axial CT images were performed through the sinuses without intravenous contrast. Coronal and sagittal two-dimensional reformats. Automated Exposure Control and Iterative Reconstruction dose reducing techniques were utilized. Findings: Mucosal thickening in the right maxillary sinus with bubbly secretions and a possible air-fluid level. The left maxillary sinus is clear. The right ostiomeatal unit is present to by mucosal thickening. Left ostiomeatal unit is patent. The frontal sinuses are clear. The right ethmoid air cells are clear. Left posterior ethmoid air cells mucosal thickening. The remaining ethmoids on the left are clear. The sphenoid sinuses show mild mucosal thickening bilaterally without fluid. The sphenoid ostia are mildly narrowed by mucosal thickening. The visualized mastoid air cells are clear. No significant nasal septal deviation. Small left sided nasal septal spur. Impression: Mild sinus disease with possible acute right maxillary sinusitis. .
[2017-06-11 15:50] VITALS: BP 136/85; O2SAT 94
[2017-06-11 15:51] VITALS: TEMP 96
[2017-06-11] MEDS ORDERED: AMOX/CLAV 875 MG/125 MG TABLET PO SCH ×2 (16:18→21:00)
[2017-06-11 17:12] VITALS: PULSE 108
[2017-06-11 18:15] VITALS: RESP 20
--- NOTE | 2017-06-11 23:38 | Discharge Summary ---
Discharge Summary- Blank Discharge Summary: Hayley was seen this morning and again late afternoon. She was seen in consultation by Dr. Valera who recommended CT of the sinuses demonstrating right maxillary sinusitis with mucosal thickening and possible air-fluid level; minor mucosal thickening in the posterior left ethmoids. Patient reported persistent cough with activities but on examination respirations were nonlabored and she was able to take repetitive coughs without coughing; cough was induced only with forced expiration which also triggered wheezing. 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 Treatment was initiated with Augmentin twice a day for 3 weeks, Nasacort, Breo- 200 1 inhalation daily, and short taper of prednisone for asthma exacerbation and sinusitis with recurrent symptoms. Additional prescriptions provided for Tussionex, DuoNeb for nebulizer, and Tessalon Perles. Stable for discharge earlier today with plans to follow-up with Jaida Feldman APRN in one week and Dr. Valera in 2 weeks. Full discharge summary to follow.
--- NOTE | 2017-06-12 00:38 | Discharge Summary ---
Discharge Information Date of admission: 06/10/17 18:21 Anticipated date of discharge: 06/11/17 Attending Physician: Opal Reed MD Primary care physician: FREDA Feldman APRN Consults: Dr. Bull Valera - Discharge Diagnosis (1) Asthma exacerbation Status: Acute (2) Acute sinusitis Status: Acute Asthma exacerbation with status asthmaticus on presentation Acute sinusitis/bronchitis with tachypnea, tachycardia, hypoxia on admission Migraines, chronic Asthma, chronic Osteoarthritis Depression/anxiety Morbid obesity-BMI 49 Hyperglycemia, steroid induced - Laboratory Labs: On admission 06/09/17 white count 8.1, d-dimer undetectable, blood gas 7.39/37/84 /22 96% saturation on room air; and chemistries notable only for glucose 150. 06/11/17 04:32 06/11/17 04:32 A1c 5.5 on date of discharge - Microbiology Respiratory viral panel negative Sputum culture-normal guillermo - Radiology Radiology: Chest x-ray on 06/09/[address] sinuses without contrast on 06/11/17: Mucosal thickening in the right maxillary sinus with bubbly secretions and a possible air-fluid level. The left maxillary sinus is clear. The right ostiomeatal unit is present to by mucosal thickening. Left ostiomeatal unit is patent. The frontal sinuses are clear. The right ethmoid air cells are clear. Left posterior ethmoid air cells mucosal thickening. The remaining ethmoids on the left are clear. The sphenoid sinuses show mild mucosal thickening bilaterally without fluid. The sphenoid ostia are mildly narrowed by mucosal thickening. The visualized mastoid air cells are clear. No significant nasal septal deviation. Small left sided nasal septal spur. Impression: Mild sinus disease with possible acute right maxillary sinusitis. History of Present Illness HPI: Hayley Ordaz is a 31-year-old patient of Dr. Reyes Feldman who presented to [facility] ED today, 06/09/17, for evaluation of worsening dyspnea. She reports a history of asthma and states that beginning in April 2017 she started to have increased cough, occasionally productive, sinus tenderness and progressive dyspnea. She was seen by her PCP and treated for "walking pneumonia" with Levaquin and doxycycline which she states she completed more than a week ago. She reports that she initially felt better following the antibiotic treatment until yesterday, 06/08/17, when she started to have increased cough with increased difficulty breathing. She denies any known fevers throughout her illness. No chest pain, abdominal pain, nausea, vomiting or dysuria. She reports that her children were previously sick with respiratory symptoms but have since resolved. She admits to using home DuoNeb treatments as well as Combivent and pro-air albuterol inhaler as needed. Throughout the night, she progressively became more short of breath, eventually seeking evaluation in the ED this morning. Upon arrival to the ED, she was found to be tachypneic and tachycardic. She was given 3 DuoNeb treatments, Solu-Medrol 125mg IV, mucinex x 1 dose and Benadryl 50mg IV without improvement. She was then given Magnesium sulfate 3g IV with some improvement. CXR revealed no acute cardiopulmonary abnormalities. Labs were unremarkable including d-dimer which was <150. Despite treatments, she remained tachycardic with tachypnea. Dr. Arguello was consulted and she was admitted into observation status for further evaluation, close respiratory monitoring and symptomatic treatment. Her length of stay is not expected to exceed more than 2 over nights. Hospital Course This is a general summary of the patient's hospital course. For more details refer to the complete medical record. Hospital course: 06/09/17 (Admission) Admit patient to observation status under care of Dr. Arguello. Patient reported to to be hypoxic during ED evaluation. Will monitor closely on telemetry with continuous oximetry. Oxygen as needed to maintain SAO2 >90%, weaning as able. Currently patient breathing easily on room air. Patient appears clinically dehydrated. Will initiate NS 125cc/hr for hydration and monitor closely. Continue DuoNeb treatment QID and PRN. Continue home Combivent. Patient given Solu-Medrol 125mg IV in ED. Will start prednisone 40mg po daily on 06/10 for pulmonary inflammation. Mucinex for mucolytic effect. Ricola and Tussinex for cough suppression. Will try and obtain sputum culture. CXR on admission revealed no acute cardiopulmonary abnormality. Patient recently completed course of levaquin as well as doxycycline for bronchitis/"walking pneumonia". Will hold off on additional antibiotics at this time as there is no indication of acute infection. Tylenol as needed for pain/fever. Continue home medications for migraines, anxiety and depression. Upon discharge, patient's care will be returned to her PCP, Dr. Feldman. 06/10/17 Symptoms partially improved but continued cough/dyspnea with minimal activity. Chest x-ray unremarkable, suspect asthma exacerbation. Given recurrent symptoms with progressive worsening over the past [address] Valera to evaluate. Peak flow significantly impaired-do not believe patient is stable for discharge at present; continue prednisone, inhaled breathing treatments with addition of Pulmicort, and monitor peak flows twice daily. White count up slightly today consistent with steroid use. Blood sugars modestly elevated on presentation and again today. A1c in a.m. 06/11/17 Hayley was seen in consultation by Dr. Valera who recommended CT of the sinuses demonstrating right maxillary sinusitis with mucosal thickening and possible air-fluid level; minor mucosal thickening in the posterior left ethmoids. Patient reports persistent cough with activities but on examination respirations were nonlabored and she was able to take repetitive breaths without coughing today; cough was induced only with forced expiration which also triggered wheezing. She is breathing more deeply today than she did yesterday. Cardiac rhythm regular with low-grade tachycardia following breathing treatments. 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 Formal report pending. Treatment was initiated with Augmentin twice a day for 3 weeks, Nasacort, Breo- 200 1 inhalation daily, and short taper of prednisone for asthma exacerbation and sinusitis with recurrent symptoms. Additional prescriptions provided for Tussionex, DuoNeb for nebulizer, and Tessalon Perles. Medications were reviewed with the patient in detail prior to discharge. Stable for discharge with plans to follow-up with Jaida Feldman APRN in one week and Dr. Valera in 2 weeks. Patient given statement to remain off work through 06/13. Time spent with patient: discharge greater than 30 minutes Discharge Plan - Med Rec/Dispo Referrals/Follow Up: Bull Valera MD [Physician] - 2 Weeks (His office can give you a sample of Breo if not covered by insurance.) Jaida Feldman APRN [Family Provider] - 1 Week [place] Instructions: Asthma (GEN), Hypoxia (GEN) Prescriptions: New Amoxicillin/Potassium Clav [Amox-Clav 875-125 mg Tablet] 875 mg PO BID #42 tab Benzonatate [Tessalon Perles] 100 mg PO TID PRN #20 cap PRN Reason: Cough Fluticasone/Vilanterol [Breo Ellipta 200-25 Mcg Inhaler] 1 puff INH DAILY #1 inhaler PredniSONE [Deltasone] 40 mg PO WB #10 tab Triamcinolone Acetonide [Nasacort] 2 spray EA NOSTRIL DAILY #1 inhaler Albuterol/Ipratropium [Duoneb] 3 ml AEROSOL RTQID PRN #2 box PRN Reason: Shortness Of Air/Wheezing Hydrocodone/Chlorphen Oral Liq [Tussionex] 5 ml PO Q12H PRN #4 oz PRN Reason: Cough Continue Albuterol/Ipratropium [Duoneb] 1 vial INH Q6H PRN PRN Reason: Shortness Of Air Pristiq (desvenlafaxine succinate ER) 100 mg tablet,extended release 24 hr 100 mg PO Q24H Topamax (topiramate) 25 mg tablet 25 mg PO BID tab - Disposition 01 Discharged Home, Self-Care
== END 2017-06-11 19:30 | disposition home or self-care (01) | DRG 202 ==
LOC: ED 06:26 → MED 06:26 → SUATTDRO 09:45 → MED 10:55
PROVIDERS: ADMIT Internal Medicine Cardiovascular Disease; ATTEND Internal Medicine